=== PATIENT | female | born 1930 | race Caucasian/White ===

== ENCOUNTER 2017-05-30 08:59 | Day surgery (SDC) | payer MEDICARE, OTHER ==
--- NOTE | 2017-05-30 08:57 | HP ---
DATE OF SURGERY: 05/30/2017 HISTORY OF PRESENT ILLNESS: The patient is an 86 year-old with upper esophageal dysphagia and lower esophagus as well better on omeprazole twice a day. She had a food bolus back in 2006 with some problems. PAST MEDICAL HISTORY: Hypothyroidism, hypertension, reflux, arthritis. PAST SURGICAL HISTORY: Cholecystectomy in the past. MEDICATIONS: Alprazolam, amlodipine, fluticasone spray, Furosemide, ketoconazole cream, levothyroxine, meclizine, metoprolol, Nexium, Nystatin, omeprazole, Patanol eye drops, potassium chloride, prednisolone drops for eyes, tramadol PRN. ALLERGIES: NKDA. FAMILY HISTORY: Hypertension, heart disease. SOCIAL HISTORY: No smoking or alcohol abuse. REVIEW OF SYSTEMS: Twelve systems reviewed per admission assessment. No chest pain or palpitations other systems negative or noncontributory as above and per preadmission questionnaire. PHYSICAL EXAMINATION: GENERAL: No acute distress. HEENT: Sclerae nonicteric. NECK: No JVD. CHEST: Equal excursion, nonlabored breathing. CVS: Regular rate and rhythm. ABDOMEN: Soft. No peritoneal signs, nontender. EXTREMITIES: No edema. NEURO: Alert, moving extremities grossly symmetrically. IMPRESSION: Dysphagia, question whether stricture or narrowing upper and lower esophagus. I feel he would benefit from upper endoscopy, possible biopsy and possible dilatation as an inpatient. Risks and benefits explained in detail including but not limited to bleeding or infection, small risk of bowel injury or perforation possibly requiring open procedure, small risk of missed or nondiagnosis or incomplete exam possibly requiring other studies or procedures or referrals as well as general risk of anesthesia or sedation but not limited to. She understands and agrees to the planned procedure and will proceed with EGD, possible biopsy, possible dilatation as an inpatient.
[2017-05-30] MEDS ORDERED: DIPRIVAN 200 MG/20 ML IV ONE (09:00)
[2017-05-30] MEDS ORDERED: Ketamine HCl 50 MG/ML IV ONE (09:00)
[2017-05-30] MEDS ORDERED: Lactated Ringers 1,000 ML IV SCH (09:30)
[2017-05-30 12:38] VITALS: BP 131/65; PULSE 58; O2SAT 95
--- NOTE | 2017-05-30 13:30 | OP ---
SURGERY DATE/TIME: 05/30/2017 07/14/2017 PREOPERATIVE DIAGNOSES: 1) Dysphagia. 2) History of esophageal narrowing status post dilatation in the past. POSTOPERATIVE DIAGNOSES: 1) Mild gastritis. 2) Distal esophageal narrowing and stricture secondary to Schatzki's ring. 3) Proximal esophageal narrowing. PROCEDURES: 1) EGD with cold biopsy of the antrum to evaluate for Helicobacter pylori. 2) Esophageal balloon dilatation distal esophagus (size 20 balloon dilator). 3) Proximal esophagus balloon dilatation (size 20 balloon dilator). SURGEON: Dr. Ron Huston. ANESTHESIA: MAC. ESTIMATED BLOOD LOSS: Minimal. INDICATIONS: As noted above. Risks and benefits explained in detail and not limited to and consent obtained. DESCRIPTION OF PROCEDURE AND FINDINGS: The patient is taken to the operating room. MAC anesthesia introduced. After official time out and no disagreement with planned procedure, bite block positioned. She had problems with swallowing in upper and lower esophagus. The scope was able to be passed down through narrowed proximal esophageal area. In the distal esophagus a Schatzki's ring causing a narrowing of distal esophagus. The scope was able to be passed through here through the pylorus to the junction of the second and third portion of duodenum. On withdrawal of the scope, duodenum and duodenal bulb grossly unremarkable. Back in the stomach she had some mild gastritis. Cold biopsies taken. She was also noted to have small hiatal hernia about 3 cm in size on retroflex. Cold biopsies taken in the antrum to evaluate for Helicobacter pylori. Good hemostasis noted. There were no signs of any masses, ulcers or other mucosal lesions other than the mild gastritis. Scope pulled back to gastroesophageal junction noted to be about 38 cm. It showed a Schatzki's ring in the narrowed area. It was felt this would benefit from balloon dilatation. There were no signs of Beavers's or other esophageal lesions at this narrowing with Schatzki's ring. She was having symptoms there and it was felt this warranted dilatation. The scope passed back down in the stomach. Balloon dilator catheter passed through, pulled back up through narrowed area of distal esophagus and gradually inflated up to first stage and then second stage for about 45 seconds a piece and then the final stage size 20 balloon dilator for 2 minutes, this was then released. The scope is then pulled back up proximal esophagus. It required removing the balloon and then passing the scope back down with the narrowed area in the proximal esophagus. The scope had been passed back down the stomach. Balloon catheter then reinserted and pulled back up through proximal esophagus. It was gradually inflated as this was not quite as narrow but she was having symptoms here, first size 19 balloon dilator for about 45 seconds or so and then finally to size 20 balloon dilator for 2 minutes. Good hemostasis was noted. Balloon catheter removed. The scope passed back down the stomach and gradually withdrawn. The two areas of balloon dilatation in both the distal and proximal esophagus appeared to be much more widely patent. There was no evidence of any full thickness issues or injuries secondary to balloon dilatation. The scope is withdrawn. The patient tolerated the procedure well. Findings discussed with the family out in the waiting room.
== END 2017-05-30 09:25 | disposition home or self-care (01) ==
LOC: SDC 08:59
PROVIDERS: ATTEND Surgery
PROC: 0DB78ZX Excision of Stomach, Pylorus, Via Natural or Artificial Opening Endoscopic, Diagnostic (ICD-10-PCS; principal; 2017-05-30)
PROC: 0D738ZZ Dilation of Lower Esophagus, Via Natural or Artificial Opening Endoscopic (ICD-10-PCS; 2017-05-30)
PROC: 0D718ZZ Dilation of Upper Esophagus, Via Natural or Artificial Opening Endoscopic (ICD-10-PCS; 2017-05-30)
DX: K29.70 Gastritis, unspecified, without bleeding (principal); K22.2 Esophageal obstruction; E03.9 Hypothyroidism, unspecified; K21.9 Gastro-esophageal reflux disease without esophagitis; M19.90 Unspecified osteoarthritis, unspecified site; Z79.899 Other long term (current) drug therapy
CPT/HCPCS: 00740; 36415; 88305; C1726; J2704